=== PATIENT | male | born 1945 ===

== ENCOUNTER → 2018-09-15 09:21 | Outpatient (CLI) | payer OTHER ==
[~2018-09-15 09:21] MED LIST: COZAAR50 MG PO; FINASTERIDE5 MG PO; JENTADUETO 2.51 EACH PO; MAXFE DROPS60 ML PO; RANITIDINE HCL300 M1 PO; SPIRIVA RESPIMAT4 G1 IH; TERAZOSIN HCL5 MG PO; VASOFLEX D1 CA1 EACH PO
== END | disposition home or self-care (01) ==
LOC: LAB 09:21
DX: D12.5 Benign neoplasm of sigmoid colon (principal); D12.7 Benign neoplasm of rectosigmoid junction; Z86.010 Personal history of colon polyps; C19 Malignant neoplasm of rectosigmoid junction; K92.1 Melena

== ENCOUNTER 2018-09-18 10:13 | Inpatient (IN) | payer OTHER ==
[2018-09-18] MEDS ORDERED: JENTADUETO 2.51 EACH PO (10:31)
[2018-09-18] MEDS ORDERED: COZAAR50 MG PO (10:32)
[2018-09-18] MEDS ORDERED: FINASTERIDE5 MG PO (10:32)
[2018-09-18] MEDS ORDERED: TERAZOSIN HCL5 MG PO (10:32)
[2018-09-18] MEDS ORDERED: SPIRIVA RESPIMAT4 G1 IH (10:33)
[2018-09-18] MEDS ORDERED: MAXFE DROPS60 ML PO (10:33)
[2018-09-18] MEDS ORDERED: VASOFLEX D1 CA1 EACH PO (10:34)
[2018-09-18] MEDS ORDERED: RANITIDINE HCL300 M1 PO (10:34)
== END 2018-09-26 18:17 | disposition home or self-care (01) | DRG 331 ==
LOC: EDSTATUS 09-24 10:12 → SURG 09-24 10:12 → CIR.AMB 09-24 10:12 → O/R 09-24 10:21 → SURH 09-24 10:21 → SURG 09-24 11:00 → SURH 09-24 17:17
PROVIDERS: Colon & Rectal Surgery
PROC: 0DTP4ZZ Resection of Rectum, Percutaneous Endoscopic Approach (ICD-10-PCS; 2018-09-24)
PROC: 07TC4ZZ Resection of Pelvis Lymphatic, Percutaneous Endoscopic Approach (ICD-10-PCS; 2018-09-24)
PROC: 0DJD8ZZ Inspection of Lower Intestinal Tract, Via Natural or Artificial Opening Endoscopic (ICD-10-PCS; 2018-09-24)
PROC: 0DTN4ZZ Resection of Sigmoid Colon, Percutaneous Endoscopic Approach (ICD-10-PCS; principal; 2018-09-24 16:45)
DX: D12.7 Benign neoplasm of rectosigmoid junction (principal)

== ENCOUNTER 2018-09-23 11:05 | Day surgery (SDC) | payer OTHER | END 2018-09-23 16:00 | disposition home or self-care (01) | LOC: AMB-ENDOS 11:05 | DX: D12.7 Benign neoplasm of rectosigmoid junction (principal) ==